=== PATIENT | female | born 1960 | race Caucasian/White ===

== ENCOUNTER → 2016-11-27 | Outpatient (REF) | LOC: ZLAB.WCH 15:17 | DX: Z01.89 Encounter for other specified special examinations (principal) ==

== ENCOUNTER → 2016-12-19 | Outpatient (CLI) | payer BC | LOC: MC.RAD 07:00 | DX: N63 Unspecified lump in breast (principal) ==

== ENCOUNTER → 2017-11-25 | Outpatient (REF) | LOC: ZLAB.WCH 18:28 | DX: Z01.89 Encounter for other specified special examinations (principal) ==